=== PATIENT | male | born 1960 | race Caucasian/White ===

== ENCOUNTER 2017-04-24 11:58 | Observation (INO) ==
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
[2017-04-24 12:19] LABS: Basophils # 0.1 K/mcL (0.0-0.2); Basophils % 0.7 %; Eosinophils # 0.3 K/mcL (0.0-0.6); Eosinophils % 2.7 %; Hematocrit 50.1 % (37.5-50.1); Hemoglobin 17.3 g/dL (12.9-16.9); Immature Granulocytes % 0.3 % (0-4); Lymphocytes % 29.6 %; Mean Corpuscular HGB Conc 34.5 g/dL (31.6-35.5); Mean Corpuscular Hemoglobin 32.5 pg (28.0-33.3); Mean Corpuscular Volume 94.2 fL (83.0-100.0); Mean Platelet Volume 10.5 fL (9.4-12.4); Monocytes # 0.5 K/mcL (0.0-1.3); Monocytes % 5.3 %; Neutrophils # 6.2 K/mcL (1.6-8.9); Platelet Count 212 K/mcL (140-400); Red Blood Count 5.32 M/mcL (4.19-5.50); Red Cell Distribution Width 12.9 % (11.5-14.5); Segmented Neutrophils % 61.4 %
[2017-04-24 12:23] LABS: INR 1.1; Prothrombin Time 11.7 Seconds (9.4-12.1)
[2017-04-24 12:36] LABS: Alanine Aminotransferase 49 Units/L (0-55); Albumin 4.3 g/dL (3.5-5.0); Albumin/Globulin Ratio 1.3 (1.1-2.2); Alkaline Phosphatase 150 Units/L (38-126); Aspartate Amino Transferase 38 Units/L (5-34); BUN/Creatinine Ratio 15 (6-26); Bilirubin,Total 0.9 mg/dL (0.2-1.2); Blood Urea Nitrogen 16 mg/dL (8-26); Calcium 9.4 mg/dL (8.6-10.8); Carbon Dioxide 26 mEq/L (19-29); Chloride 104 mEq/L (98-109); Globulin 3.2 g/dL (2.4-3.5); Glucose 135 mg/dL (70-99); Osmolality,Calculated 295 (280-300); Potassium 3.5 mEq/L (3.5-4.5); Sodium 141 mEq/L (136-145); Total Protein 7.5 g/dL (6.0-8.3); eGFR For African Americans > 60 (> 60); eGFR For Non-African Americans > 60 (> 60)
[2017-04-24] MEDS ORDERED: Aspirin 325 MG TABLET PO ONE (12:38)
[2017-04-24] MEDS ORDERED: Ondansetron 4 MG/2 ML VIAL IVP PRN (15:07)
[2017-04-24] MEDS ORDERED: Naloxone 0.4 MG/ML INJ IVP PRN (15:07)
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
[2017-04-24] MEDS ORDERED: Pantoprazole 40 MG VIAL IVP SCH (19:51)
[2017-04-24] MEDS: *HR* Heparin 5,000 UNIT/ML VIAL SQ SCH (22:10)
[2017-04-25 00:56] LABS: Basophils # 0.1 K/mcL (0.0-0.2); Basophils % 0.5 %; Eosinophils # 0.4 K/mcL (0.0-0.6); Eosinophils % 3.8 %; Hematocrit 47.6 % (37.5-50.1); Hemoglobin 16.4 g/dL (12.9-16.9); Immature Granulocytes % 0.7 % (0-4); Immature Platelets 5.1 % (1.1-6.1); Lymphocytes # 3.5 K/mcL (0.6-4.6); Lymphocytes % 34.8 %; Mean Corpuscular HGB Conc 34.5 g/dL (31.6-35.5); Mean Corpuscular Hemoglobin 32.6 pg (28.0-33.3); Mean Corpuscular Volume 94.6 fL (83.0-100.0); Mean Platelet Volume 10.8 fL (9.4-12.4); Monocytes # 0.6 K/mcL (0.0-1.3); Monocytes % 6.2 %; Neutrophils # 5.5 K/mcL (1.6-8.9); Platelet Count 201 K/mcL (140-400); Red Blood Count 5.03 M/mcL (4.19-5.50); Red Cell Distribution Width 13.1 % (11.5-14.5)
[2017-04-25 01:12] LABS: BUN/Creatinine Ratio 15 (6-26); Blood Urea Nitrogen 18 mg/dL (8-26); Carbon Dioxide 26 mEq/L (19-29); Chloride 107 mEq/L (98-109); Chol/HDL Ratio 2.5 (0-4.9); Cholesterol 150 mg/dL (< 200); Glucose 99 mg/dL (70-99); HDL Cholesterol 60 mg/dL (40-59); LDL Cholesterol,Calculated 82 mg/dL (0-99); Magnesium 2.1 mg/dL (1.6-2.6); Osmolality,Calculated 294 (280-300); Potassium 4.1 mEq/L (3.5-4.5); Sodium 141 mEq/L (136-145); Triglycerides 38 mg/dL (< 150); eGFR For African Americans > 60 (> 60); eGFR For Non-African Americans > 60 (> 60)
[2017-04-25] MEDS: *HR* Heparin 5,000 UNIT/ML VIAL SQ SCH (03:20)
[2017-04-25 04:02] VITALS: BP 122/84
--- NOTE | 2017-04-25 07:45 | Internal Med Progress Note ---
Date of Encounter: 04/25/17 Time of Encounter: 07:25 - Assessment and plan (1) Chest pain Current Visit: Yes Status: Acute Assessment and plan: Pt denies chest pain at this time. He feels that it is all GI/GERD related. Although he has risk factors and a family history, pt declines stress test or any other testing and wants to go home. Chest xray negative for acute cardiopulmonary disease, troponins wer negative x 3. lipid panel is WNL. D-dimer was WNL . Pt does not take any home medications and states that he quit smoking 27 years ago. Lungs are clear, there is no peripheral edema, abd was tender to palpation in the epigstric area. Pt is going to sign out AMA. Qualifiers: Chest pain type: unspecified Qualified Code(s): R07.9 - Chest pain, unspecified (2) DVT prophylaxis Current Visit: Yes Status: Acute Assessment and plan: Heparin SQ (3) HTN (hypertension) Current Visit: Yes Status: Acute Assessment and plan: Well controlled. Pt does not take any medications. Qualifiers: Hypertension type: unspecified secondary hypertension Qualified Code(s): I15.9 - Secondary hypertension, unspecified; I15 - Secondary hypertension (4) SOB (shortness of breath) Current Visit: Yes Status: Acute Assessment and plan: Pt denies. (5) Nausea Current Visit: Yes Status: Acute Assessment and plan: Pt denies. (6) Generalized weakness Current Visit: Yes Status: Acute Assessment and plan: Pt denies. - Time Spent With Patient less than 15 minutes - Subjective Interval history: Pt was seen and assessed at about 0725. He is alert and oriented and states that he does not want a stress test and wants to go home. He says that he told the ER staff yesterday that he was giving them 24 hours to find out what is wrong with him. He is adamant that he had a stress test 4 or 5 years ago and that it was perfect and he does not need another one. WE discussed the benefits of a stress test considering his family history of heart disease. He states that he feels strongly that it is GERD/GI related. We discussed starting OTC Omeprazole and the need for him to follow up with his PCP this week. - Constitutional Vitals: Temp Pulse Resp BP Pulse Ox 97.9 F 65 17 122/84 97 04/25/17 04:01 04/25/17 04:01 04/25/17 04:01 04/25/17 04:01 04/25/17 04:01 General appearance: Present: cooperative, A&O X 3, pleasant, no acute distress, answers questions appropriately - Head Head exam: Present: normal inspection - Eye Eye exam: Present: normal appearance, conjuntiva pink - ENT ENT exam: Present: mucous membranes moist, normal exam, normal external ear exam - Neck Neck exam general surgery: Present: normal inspection. Absent: lymphadenopathy , tenderness - Respiratory Respiratory exam: Present: CTAB. Absent: chest wall tenderness, decreased breath sounds, rales, respiratory distress, rhonchi, stridor, wheezes - Cardiovascular Cardiovascular exam: Present: RRR, +S1, +S2. Absent: clicks, diastolic murmur, gallop, systolic murmur - GI/Abdominal GI/Abdominal exam: Present: normal bowel sounds, soft. Absent: distended, hepatomegaly, tenderness - Extremities Exam Extremities exam: Present: normal capillary refill, normal inspection, warm, radial pulses palpable and symetrical. Absent: pedal edema, tenderness - Neurological Exam Neurological exam: Present: alert, oriented X3, no focal deficits. Absent: facial droop, speech deficit - Skin Skin exam: Present: dry, intact, normal color, warm. Absent: rash, urticaria Internal Medicine: Result - Labs CBC & Chem 7: 04/25/17 00:28 04/25/17 00:28 Labs: Short CBC 04/25/17 Range/Units 00:28 WBC 10.2 (4.3-11.1) K/mcL Hgb 16.4 (12.9-16.9) g/dL Hct 47.6 (37.5-50.1) % Plt Count 201 (140-400) K/mcL Neutrophils # 5.5 (1.6-8.9) K/mcL BMP 04/25/17 00:28 Sodium 141 Potassium 4.1 Chloride 107 Carbon Dioxide 26 BUN 18 Creatinine 1.23 Glucose 99 Calcium 9.0 Cardiac Enzymes 04/24/17 04/25/17 Range/Units 18:20 00:28 Troponin I 0.00 0.00 (0-0.03) ng/mL - ABG Interpretation ABG results: PT/INR, D-dimer PT 11.7 Seconds (9.4-12.1) 04/24/17 12:09 D-Dimer 377 ng/mLFEU (0-500) 04/24/17 15:51 Consult Discharge Plan - Plan Referrals: Judson Bowman DO [Primary Care Provider] -
[2017-04-25] MEDS ORDERED: Aspirin Enteric Coated 325 MG Tablet PO SCH (09:00)
[2017-04-25] MEDS ORDERED: Pantoprazole 40 MG VIAL IVP SCH (09:00)
--- NOTE | 2017-04-26 15:10 | Electrocardiograph Report ---
[place] [id number] Test Date: 2017-04-24 Pat Name: Jae Bruce Department: 104 Room: 3B33 Gender: M Family Practice Physician: AM : 1960 Requested By: Devyn Martinez Order Number: [id number] Reading MD: Melonie Zelaya Measurements Intervals [place] Rate: 82 P: 62 ID: [id number] QRS: 69 QRSD: 92 T: 47 QT: 371 QTc: 409 Interpretive Statements SINUS RHYTHM NONSPECIFIC ST ABNORMALITIES Electronically Signed On 04-25-2017 12:13:18 EDT by Melonie Zelaya
== END 2017-04-25 08:42 | disposition left against medical advice (07) ==
LOC: EMEROO 11:58 → 3BNU 11:58
PROVIDERS: ADMIT Nurse Practitioner Family; ATTEND Registered Nurse